=== PATIENT | male | born 1960 | race Caucasian/White ===

== ENCOUNTER 2019-01-02 21:51 | Inpatient (IN) | payer MEDICARE, OTHER ==
[~2019-01-02] VITALS: Ht 170.2 cm; Wt 120.0 kg
[~2019-01-02 21:51] MED LIST: ACYC200 PO; ASPI81EC PO; GEMF600 PO; HYDACE10B PO; HYDACE5 PO; HYDMOR2 PO; INS50/50I SC; METF500 PO; Novolin R100 UNIT/M SC; OXYC15ER PO; OXYC5 PO
[2019-01-02 22:37] LABS: BASOPHILS ABSOLUTE AUTO 0.13 K/mm3 (0.00-0.23); BASOPHILS PERCENT AUTO 1 % (0-2); EOSINOPHILS ABSOLUTE AUTO 0.17 K/mm3 (0.00-0.68); EOSINOPHILS PERCENT AUTO 1 % (0-6); Hematocrit 42.4 % (37.0-53.0); IMMATURE GRAN PERCENT AUTO 1 % (0-1); LYMPHOCYTES ABSOLUTE AUTO 2.83 K/mm3 (0.84-5.20); LYMPHOCYTES PERCENT AUTO 19 % (21-46); MONOCYTES ABSOLUTE AUTO 1.31 K/mm3 (0.16-1.47); MONOCYTES PERCENT AUTO 9 % (4-13); Mean Corpuscular HGB 32.8 pg (26.0-34.0); Mean Corpuscular HGB Conc 35.4 g/dL (31.5-36.5); Mean Corpuscular Volume 93 fL (80-100); Mean Platelet Volume 10.4 fL (9.1-12.4); NEUTROPHILS ABSOLUTE AUTO 10.03 K/mm3 (1.96-9.15); NEUTROPHILS PERCENT AUTO 69 % (41-73); Platelet Count 202 K/mm3 (150-400); RDW Coefficient Variation 12.3 % (11.7-14.2); RDW Standard Deviation 41.2 fL (35.1-46.3); Red Blood Cell Count 4.58 M/mm3 (4.30-5.90); White Blood Cell Count 14.57 K/mm3 (4.00-11.30)
[2019-01-02 22:56] LABS: Alanine Aminotransfer (ALT/SGP 118 U/L (12-78); Albumin, Blood 4.4 g/dL (3.4-5.0); Albumin/Globulin Ratio 1.2 (0.8-1.8); Alk Phos 111 U/L (50-136); Anion Gap 14 mmol/L (6-16); Aspartate Aminotrans (AST/SGOT 66 U/L (12-37); Bilirubin, Total 0.7 mg/dL (0.1-1.0); Blood Urea Nitrogen 35 mg/dL (8-24); Bun/Creatinine Ratio 11.1 (12.0-20.0); CO2, Blood 18 mmol/L (21-32); Calcium, Blood 9.3 mg/dL (8.5-10.1); Chloride, Blood 103 mmol/L (98-108); Creatinine, Blood 3.16 mg/dL (0.60-1.20); Globulin, Blood 3.8 g/dL (2.2-4.0); Glomerular Filtration Rate 22 (60-); Glucose, Blood 116 mg/dL (70-99); Potassium, Blood 3.4 mmol/L (3.5-5.5); Sodium, Blood 135 mmol/L (136-145); Total Protein, Blood 8.2 g/dL (6.4-8.2); Troponin I <0.015 ng/mL (0.000-0.040)
[2019-01-03 05:43] LABS: Source, Urine Clean Catch
[2019-01-03 05:48] LABS: Bilirubin, Urine Neg (Neg); Blood, Urine 2+ (Neg); Glucose Qualitative, Urine Neg (Neg); Ketones, Urine 2+ (Neg); Leukocyte Esterase, Urine 1+ (Neg); Nitrite, Urine Neg (Neg); Protein, Urine 2+ (Neg); Specific Gravity, Urine 1.015 (1.003-1.022); Urobilinogen, Urine 1+ (Normal)
[2019-01-03 05:50] LABS: Appearance, Urine Clear (Clear); Color, Urine Yellow (P-Yellow)
[2019-01-03 05:51] LABS: BASOPHILS ABSOLUTE AUTO 0.08 K/mm3 (0.00-0.23); BASOPHILS PERCENT AUTO 1 % (0-2); EOSINOPHILS ABSOLUTE AUTO 0.18 K/mm3 (0.00-0.68); EOSINOPHILS PERCENT AUTO 2 % (0-6); Hematocrit 39.2 % (37.0-53.0); Hemoglobin 13.4 g/dL (13.5-17.5); IMMATURE GRAN ABSOLUTE AUTO 0.05 K/mm3 (0.00-0.10); IMMATURE GRAN PERCENT AUTO 1 % (0-1); LYMPHOCYTES ABSOLUTE AUTO 2.33 K/mm3 (0.84-5.20); LYMPHOCYTES PERCENT AUTO 26 % (21-46); MONOCYTES ABSOLUTE AUTO 1.04 K/mm3 (0.16-1.47); MONOCYTES PERCENT AUTO 12 % (4-13); Mean Corpuscular HGB Conc 34.2 g/dL (31.5-36.5); Mean Corpuscular Volume 94 fL (80-100); Mean Platelet Volume 10.5 fL (9.1-12.4); NEUTROPHILS PERCENT AUTO 59 % (41-73); Platelet Count 151 K/mm3 (150-400); RDW Coefficient Variation 12.7 % (11.7-14.2); RDW Standard Deviation 42.7 fL (35.1-46.3); Red Blood Cell Count 4.19 M/mm3 (4.30-5.90); White Blood Cell Count 9.08 K/mm3 (4.00-11.30)
[2019-01-03 05:54] LABS: White Blood Cells, Urine 0-2 /hpf (0-5)
[2019-01-03 05:55] LABS: Red Blood Cells, Urine 0-2 /hpf (0-2); Squamous Epithelial Cells Rare /hpf (Few)
[2019-01-03 05:56] LABS: Bacteria Not Seen /hpf; Hyaline Casts 0-2 /lpf (0-2); Uric Acid Crystals Few /hpf
[2019-01-03 06:01] LABS: U Amphetamine Screen Not Detected; U Barbituate Screen Not Detected; U Benzodiazapine Screen DETECTED; U Buprenorphine Screen Not Detected; U Cannabinoids Screen DETECTED; U Cocaine Screen Not Detected; U Methadone Screen Not Detected; U Methamphetamine Screen Not Detected; U Opiates Screen Not Detected; U Oxycodone Screen Not Detected; U Phencyclidine Screen Not Detected; U Propoxyphene Screen Not Detected
[2019-01-03 06:10] LABS: Bun/Creatinine Ratio 17.3 (12.0-20.0); Calcium, Blood 8.2 mg/dL (8.5-10.1); Creatinine, Blood 2.08 mg/dL (0.60-1.20); Potassium, Blood 3.7 mmol/L (3.5-5.5)
--- NOTE | 2019-01-03 07:39 | NUR ---
SUMMARY PT ADMITTED THIS AM FROM ER. PT NOT WANTING TO ANSWER FOR ADMIT AND NOT WANTING FULL ASSES. UNABLE TO ANSWER SPECIFICS REGARDING MEDS AND IS POOR HISTORIAN REGARDING MED HX. U/A OBTAINED AND IV FLUIDS INFUSING.
[2019-01-03] MEDS ORDERED: REFRESH OPTIVE10 ML BOTHEYES (11:36)
[2019-01-03] MEDS ORDERED: ALBU90OI61 INH ×2 (11:38→12:54)
[2019-01-03] MEDS ORDERED: BENZ100A PO ×2 (11:39→11:40)
[2019-01-03] MEDS ORDERED: IBUP800 PO (11:42)
[2019-01-03] MEDS ORDERED: OMEPRAZOLE20 MG PO (11:43)
[2019-01-03] MEDS ORDERED: CYAN500 PO (11:45)
[2019-01-03] MEDS ORDERED: TRAM50 PO (11:47)
[2019-01-03] MEDS ORDERED: MONT10T PO ×2 (11:49→14:28)
[2019-01-03] MEDS ORDERED: EPIPEN0.3 MG/0.3 IM (11:51)
[2019-01-03] MEDS ORDERED: XOLAIR150 MG/1 M SQ (11:51)
[2019-01-03] MEDS ORDERED: Zocor20 MG PO (11:52)
[2019-01-03] MEDS ORDERED: INSULANPEN SC (12:34)
[2019-01-03] MEDS ORDERED: SPIRIVA RESPIMAT4 GM INH (12:58)
[2019-01-03] MEDS ORDERED: ABAT250V (12:58)
[2019-01-03] MEDS ORDERED: ACET325 PO (14:17)
[2019-01-03] MEDS ORDERED: ARTIFICIAL TEAR BOTHEYES (14:21)
[2019-01-03] MEDS ORDERED: ATOR20 PO (14:25)
[2019-01-03] MEDS ORDERED: BUDE6HFA (14:25)
[2019-01-03] MEDS ORDERED: Xolair150 MG ID (14:31)
[2019-01-03] MEDS ORDERED: TIOT18 INH (14:32)
--- NOTE | 2019-01-03 18:30 | NUR ---
SHIFT SUMMARY PATIENT STATES HE IS FEELING BETTER THIS AFTERNOON. TOLERATING DIET. IVF INFUSING PER ORDER. UP TO AMBULATE IN [place]. DENIES NEED FOR PAIN MED AT THIS TIME.
[2019-01-04 04:40] LABS: CPK Creatine Kinase 464 U/L (39-308)
[2019-01-04 04:47] LABS: Alanine Aminotransfer (ALT/SGP 75 U/L (12-78); Albumin, Blood 3.1 g/dL (3.4-5.0); Albumin/Globulin Ratio 1.1 (0.8-1.8); Alk Phos 91 U/L (50-136); Anion Gap 7 mmol/L (6-16); Aspartate Aminotrans (AST/SGOT 38 U/L (12-37); Bilirubin, Total 0.6 mg/dL (0.1-1.0); Blood Urea Nitrogen 28 mg/dL (8-24); CO2, Blood 23 mmol/L (21-32); Calcium, Blood 8.4 mg/dL (8.5-10.1); Chloride, Blood 109 mmol/L (98-108); Creatinine, Blood 1.22 mg/dL (0.60-1.20); Globulin, Blood 2.8 g/dL (2.2-4.0); Glomerular Filtration Rate >60 (60-); Glucose, Blood 249 mg/dL (70-99); Potassium, Blood 4.2 mmol/L (3.5-5.5); Sodium, Blood 139 mmol/L (136-145)
[2019-01-04 04:53] LABS: Total Protein, Blood 5.9 g/dL (6.4-8.2)
--- NOTE | 2019-01-04 05:33 | NUR ---
SHIFT SUMMARY PT REMAINS ON FLOOR FOR ACUTE RENAL FAILURE. LABS ARE MUCH IMPROVED THIS MORNING, BUN AND CREATININE ARE STILL JUST SLIGHTLY ELEVATED BUT ALMOST WNL. GFR IS NOW >60. HIS AST HAS ALSO COME DOWN, PT WAS ADMITTED ETOH POSITIVE. PT HAS CONTINUED TO GET IV HYDRATION OVERNIGHT. PT IS A&O, ABLE TO MAKE NEEDS KNOWN. EDUCATED PT ON FOLLOWING UP WITH HIS PRIMARY CARE DOCTOR AND ONLY STOPPING MEDICATIONS WITH A DOCTOR'S APPROVAL, HE HAD STOPPED TAKING HIS ORAL STEROID WITHOUT TAPERING AND WITHOUT THE DOCTOR'S KNOWLEDGE. WILL CTM UNTIL PASS TO NEXT SHIFT.
--- NOTE | 2019-01-04 14:37 | NUR ---
DISCHARGE DISCHARGED TO HOME WITH A FRIEND. D/C INSTRUCTIONS PROVIDED, PT STATES UNDERSTANDING. PT ENCOURAGED TO F/U WITH PCP WITHIN 1 WEEK OR [facility] FOR ANY QUESTIONS OR CONCERNS. VSS.
== END 2019-01-04 13:15 | disposition home or self-care (01) | DRG 682 ==
LOC: ER 21:51 → SURS 01-03 02:20
PROVIDERS: Emergency Medicine; Internal Medicine; ADMIT Hospitalist
DX: N17.9 Acute kidney failure, unspecified (principal); G92 Toxic encephalopathy; Z68.41 Body mass index [BMI] 40.0-44.9, adult; E87.2 Acidosis; M62.82 Rhabdomyolysis; Z86.73 Personal history of transient ischemic attack (TIA), and cerebral infarction without residual deficits; E11.9 Type 2 diabetes mellitus without complications; Z79.4 Long term (current) use of insulin; Z79.82 Long term (current) use of aspirin; Z87.891 Personal history of nicotine dependence; E66.01 Morbid (severe) obesity due to excess calories; T42.4X5A Adverse effect of benzodiazepines, initial encounter; Y92.238 Other place in hospital as the place of occurrence of the external cause
CPT/HCPCS: 36415; 51798; 71046; 71260; 76770; 80048; 80053; 81001; 82550; 82947; 83605; 84484; 85025; 87086; 93005; 93010; 94640; 96361; 96365-59; 96375-59; 99285-25; G0480; J0696; J1650; J1815; J2060; J2405; J7030; J7120; Q9967